=== PATIENT | female | born 1985 | race Caucasian/White ===

== ENCOUNTER → 2018-09-30 | Outpatient (CLI) | payer OTHER ==
[2018-09-30 20:50] LABS: Total Protein,CSF 34 mg/dL (12-60)
[2018-09-30 20:56] LABS: CSF Tube Number 4
[2018-09-30 20:57] LABS: Appearance,CSF Clear; CSF Tube Volume 6; Nucleated Cells, CSF 0 u/L (0-5); Red Blood Cell,CSF 0 u/L (0-10)
[2018-10-05 14:48] LABS: IgG - CSF 1.9 mg/dL (0.0 - 3.4); IgG/Albumin Index (CSF) 0.58 (0.00 - 0.77); Immunoglobulin G 752 mg/dL (700 - 1600)
== END | disposition home or self-care (01) ==
LOC: LABWHC1 08:07
PROVIDERS: ATTEND Physician Assistant
DX: R90.82 White matter disease, unspecified (principal)
CPT/HCPCS: 36415; 82040; 82042; 82784; 83873; 83916; 84157; 87529; 87801; 88108; 89050